=== PATIENT | female | born 2000 | race Caucasian/White ===

== ENCOUNTER 2019-11-15 04:25 | Emergency (ER) | payer MEDICAID ==
[2019-11-15] MEDS: Sodium Chloride 0.9% 1,000 ML IV ONE (04:50)
[2019-11-15] MEDS: Ondansetron 4 MG/2 ML SDV IVPUSH ONE (04:51)
--- NOTE | 2019-11-15 04:55 | EDM.PDOC ---
ED HPI GENERAL MEDICAL PROBLEM - General Chief Complaint: CLAIMS TECHNICIAN Problem Stated Complaint: VOMITING, EARLY Time Seen by Provider: 11/15/19 04:48 Source of Information: Reports: Group Home Records History Limitations: Reports: No Limitations - History of Present Illness INITIAL COMMENTS - FREE TEXT/NARRATIVE: 19-year-old female presents to the emergency room chief complaint of 4 days inability to eat and drink. Patient has been having difficulty during this pregnancies. Patient denies chills or any urinary symptoms. Onset: Today Duration: Day(s):, Getting Worse Location: Reports: Abdomen Severity: Moderate Improves with: Reports: None Worsens with: Reports: None Associated Symptoms: Reports: No Other Symptoms, Nausea/Vomiting Abdomen Pain Score (Numeric/FACES): 6 - Related Data Allergies Allergy/AdvReac Type Severity Reaction Status Date / Time oxycodone Allergy Other Verified 11/15/19 04:37 Home Meds: Home Meds No122/Iron/Folic Acid [ Multi Tablet] 1 each PO DAILY 11/15/19 [History] Past Medical History HEENT History: Reports: None Cardiovascular History: Reports: None Respiratory History: Reports: None Gastrointestinal History: Reports: None Genitourinary History: Reports: None 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: Musculoskeletal History: Reports: None Neurological History: Reports: None Psychiatric History: Reports: Anxiety, Depression Endocrine/Metabolic History: Reports: None Insulin Pump Model and Medical Consultant: None Hematologic History: Reports: None Immunologic History: Reports: None Oncologic (Cancer) History: Reports: None Dermatologic History: Reports: None - Infectious Disease History Infectious Disease History: Reports: None - Past Surgical History Head Surgeries/Procedures: Reports: None Female Surgical History: Reports: None Social & Family History - Family History Family Medical History: Noncontributory - Tobacco Use Smoking Status *Q: Never Smoker - Caffeine Use Caffeine Use: Reports: Soda - Recreational Drug Use Recreational Drug Use: No ED ROS GENERAL - Review of Systems Review Of Systems: Comprehensive ROS is negative, except as noted in HPI. Constitutional: Reports: No Symptoms, Weakness HEENT: Reports: No Symptoms Respiratory: Reports: No Symptoms Cardiovascular: Reports: No Symptoms Endocrine: Reports: No Symptoms GI/Abdominal: Reports: Nausea, Vomiting : Reports: No Symptoms Musculoskeletal: Reports: No Symptoms Skin: Reports: No Symptoms Neurological: Reports: No Symptoms Psychiatric: Reports: No Symptoms Hematologic/Lymphatic: Reports: No Symptoms Immunologic: Reports: No Symptoms ED EXAM, GI/ABD - Physical Exam Exam: See Below Exam Limited By: No Limitations General Appearance: Alert, WD/WN, No Apparent Distress Eyes: Bilateral: Normal Appearance Ears: Normal External Exam, Normal Canal, Hearing Grossly Normal, Normal TMs Nose: Normal Inspection Throat/Mouth: Normal Inspection Head: Atraumatic Neck: Normal Inspection Respiratory/Chest: No Respiratory Distress, Lungs Clear, Normal Breath Sounds, No Accessory Muscle Use Cardiovascular: Normal Peripheral Pulses, Regular Rate, Rhythm, No Edema GI/Abdominal Exam: Normal Bowel Sounds, Soft, Non-Tender, No Distention, No Abnormal Bruit (Female) Exam: Deferred Rectal (Female) Exam: Deferred Back Exam: Normal Inspection, Full Range of Motion Extremities: Normal Inspection, Normal Range of Motion Neurological: Alert, Oriented, CN II-XII Intact, Normal Cognition, Normal Reflexes, No Motor/Sensory Deficits Psychiatric: Normal Affect, Normal Mood Skin Exam: Warm, Dry, Intact, Normal Color Lymphatic: No Adenopathy Course - Vital Signs Last Recorded V/S: Last Vital Signs Temp 99.3 F 11/15/19 06:48 Pulse 76 11/15/19 06:48 Resp 18 11/15/19 06:48 BP 107/39 L 11/15/19 06:48 Pulse Ox 100 11/15/19 06:48 - Orders/Labs/Meds Orders: Active Orders 24 hr Category Date Time Status Dextrose 5%-Lactated Ringers 1,000 ml Med 11/15/19 06:11 Active IV NOW Medication Orders Dextrose/Lactated Ringer's (Dextrose 5%-Lactated Ringers) 1,000 mls @ 999 mls/ hr IV NOW STA Stop: 11/15/19 07:11 Last Admin: 11/15/19 06:12 Dose: 999 mls/hr Labs: Laboratory Tests 11/15/19 11/15/19 11/15/19 Range/Units 04:40 04:40 05:45 WBC 11.67 H (4.0-11.0) K/uL RBC 4.75 (4.30-5.90) M/uL Hgb 15.0 (12.0-16.0) g/dL Hct 41.5 (36.0-46.0) % MCV 87.4 (80.0-98.0) fL MCH 31.6 (27.0-32.0) pg MCHC 36.1 (31.0-37.0) g/dL RDW Std Deviation 39.0 (28.0-62.0) fl RDW Coeff of Niyah 12 (11.0-15.0) % Plt Count 226 (150-400) K/uL MPV 10.40 (7.40-12.00) fL Neut % (Auto) 80.6 H (48.0-80.0) % Lymph % (Auto) 13.9 L (16.0-40.0) % [place] % (Auto) 5.4 (0.0-15.0) % Eos % (Auto) 0.0 (0.0-7.0) % Baso % (Auto) 0.1 (0.0-1.5) % Neut # (Auto) 9.4 H (1.4-5.7) K/uL Lymph # (Auto) 1.6 (0.6-2.4) K/uL [place] # (Auto) 0.6 (0.0-0.8) K/uL Eos # (Auto) 0.0 (0.0-0.7) K/uL Baso # (Auto) 0.0 (0.0-0.1) K/uL Nucleated RBC % 0.0 /100WBC Nucleated RBCs # 0 K/uL Sodium 135 L (136-145) mmol/L Potassium 3.8 (3.5-5.1) mmol/L Chloride 99 (98-107) mmol/L Carbon Dioxide 25.1 (21.0-32.0) mmol/L BUN 10 (7.0-18.0) mg/dL Creatinine 0.7 (0.6-1.0) mg/dL Est Cr Clr Drug Dosing 132.86 mL/min Estimated GFR (MDRD) > 60.0 ml/min Glucose 117 H (74-106) mg/dL Calcium 9.6 (8.5-10.1) mg/dL Total Bilirubin 0.6 (0.2-1.0) mg/dL AST 18 (15-37) IU/L ALT 19 (14-63) IU/L Alkaline Phosphatase 90 (46-116) U/L Total Protein 8.7 H (6.4-8.2) g/dL Albumin 4.6 (3.4-5.0) g/dL Globulin 4.1 H (2.6-4.0) g/dL Albumin/Globulin Ratio 1.1 (0.9-1.6) Urine Color YELLOW Urine Appearance SLT CLOUDY Urine pH 7.5 (5.0-8.0) Ur Specific [place] 1.015 (1.001-1.035) Urine Protein NEGATIVE (NEGATIVE) mg/dL Urine Glucose (UA) NEGATIVE (NEGATIVE) mg/dL Urine Ketones 15 H (NEGATIVE) mg/dL Urine Occult Blood NEGATIVE (NEGATIVE) Urine Nitrite NEGATIVE (NEGATIVE) Urine Bilirubin NEGATIVE (NEGATIVE) Urine Urobilinogen 0.2 (<2.0) EU/dL Ur Leukocyte Esterase NEGATIVE (NEGATIVE) Meds: Medications Generic Name Dose Route Start Last Admin Trade Name Freq PRN Reason Stop Dose Admin Dextrose/Lactated Ringer's 1,000 mls @ 999 mls/hr 11/15/19 06:11 11/15/19 06: 12 Dextrose 5%-Lactated Ringers IV 11/15/19 07:11 999 mls/hr NOW STA Administration Discontinued Medications Generic Name Dose Route Start Last Admin Trade Name Freq PRN Reason Stop Dose Admin Sodium Chloride 1,000 mls @ 1,000 mls/hr 11/15/19 04:45 11/15/19 04:50 Normal Saline IV 11/15/19 05:44 1,000 mls/hr .Bolus ONE Administration Dextrose/Ringer's 1,000 mls @ 1,000 mls/hr 11/15/19 05:00 Dextrose 5%-Ringers IV [facility]ED [facility] Ondansetron HCl 4 mg 11/15/19 04:45 11/15/19 04:51 Zofran IVPUSH 11/15/19 04:46 4 mg ONETIME ONE Administration Departure - Departure Time of Disposition: 07:02 Disposition: Home, Self-Care 01 Condition: Good Clinical Impression: Hyperemesis gravidarum before end of 22 week gestation with carbohydrate depletion - Discharge Information Instructions: Hyperemesis Gravidarum Referrals: Gayle Fajardo NP [Primary Care Provider] - Forms: ED Department Discharge Sepsis Event Note - Evaluation Sepsis Screening Result: No Definite Risk - Focused Exam Vital Signs: Vital Signs Temp Pulse Resp BP Pulse Ox 11/15/19 06:48 99.3 F 76 18 107/39 L 100 11/15/19 04:35 99 F 96 18 143/58 H 98 Date Exam was Performed: 11/15/19 Time Exam was Performed: 07:01 - My Orders Last 24 Hours: My Active Orders 11/15/19 06:11 Dextrose 5%-Lactated Ringers 1,000 ml IV NOW - Assessment/Plan Last 24 Hours: My Active Orders 11/15/19 06:11 Dextrose 5%-Lactated Ringers 1,000 ml IV NOW
[2019-11-15] MEDS ORDERED: Dextrose 5%-Ringers 1,000 ML IV SCH (05:00)
[2019-11-15 05:07] LABS: BLOOD UREA NITROGEN,BUN 10 mg/dL (7.0-18.0); CARBON DIOXIDE,CO2 25.1 mmol/L (21.0-32.0); CHLORIDE,CL 99 mmol/L (98-107); GLUCOSE RANDOM 117 mg/dL (74-106); POTASSIUM,K 3.8 mmol/L (3.5-5.1); SODIUM,NA 135 mmol/L (136-145)
[2019-11-15] MEDS: Dextrose 5%-Lactated Ringers 1,000 ML IV STA (06:12)
== END 2019-11-15 07:20 | disposition home or self-care (01) ==
LOC: MW.ED 04:25
DX: O21.1 Hyperemesis gravidarum with metabolic disturbance (principal); Z88.5 Allergy status to narcotic agent; Z3A.10 10 weeks gestation of pregnancy
CPT/HCPCS: 36415; 80053; 81003; 85025; 96361; 96374; 99284; J2405; J7030; J7121; 99283